=== PATIENT | female | born 2000 | race Two or more races ===

== ENCOUNTER 2023-01-18 08:36 | Emergency (ER) | payer SELFPAY ==
[~2023-01-18] VITALS: Ht 160 cm; Wt 68.2 kg
[2023-01-18 08:44] VITALS: BP 123/90; PULSE 94; RESP 18; TEMP 98.2
== END 2023-01-18 10:15 | disposition left against medical advice (07) ==
LOC: EMS 08:37
DX: N93.9 Abnormal uterine and vaginal bleeding, unspecified (principal); Z53.21 Procedure and treatment not carried out due to patient leaving prior to being seen by health care provider
CPT/HCPCS: 99281; Z7502

== ENCOUNTER 2023-01-22 19:52 | Emergency (ER) | payer MEDICAID ==
[~2023-01-22] VITALS: Ht 160 cm; Wt 68.2 kg
[2023-01-22 20:00] VITALS: TEMP 97.9
[2023-01-22] MEDS ORDERED: ACETAMINOPHEN 500 MG TABLET PO ONE (20:15)
[2023-01-22] MEDS ORDERED: PYRIDOXINE HCL 50 MG TABLET PO ONE (20:15)
[2023-01-22] MEDS ORDERED: DOXYLAMINE SUCCINATE 25 MG TABLET PO ONE (20:15)
[2023-01-22 20:25] LABS: APPEARANCE,URINE CLEAR (CLEAR); BILIRUBIN,URINE NEGATIVE (NEGATIVE); COLOR,URINE LIGHT YELLOW (YELLOW); GLUCOSE, URINE (UA) NEGATIVE (NEGATIVE); KETONES,URINE 40-60 mg/dL (NEGATIVE); LEUKOCYTE ESTERASE ,URINE SMALL (NEGATIVE); NITRATE,URINE NEGATIVE (NEGATIVE); OCCULT BLOOD,URINE TRACE (NEGATIVE); PH,URINE 5.5 (5.0-8.0); PROTEIN,URINE NEGATIVE (NEGATIVE); SPECIFIC GRAVITIY, URINE 1.011 (1.003-1.030); UROBILINOGEN,URINE <=1.0 mg/dL (<=1.0)
[2023-01-22] MEDS ORDERED: SODIUM CHLORIDE 0.9% 1,000 ML IV ONE (20:30)
[2023-01-22 20:52] LABS: RBC,URINE None Seen /HPF (0-2)
[2023-01-22 20:53] LABS: BACTERIA,URINE Few /HPF (None Seen)
[2023-01-22 21:06] LABS: COVID AG,FIA SOURCE NASAL SWAB
[2023-01-22] MEDS ORDERED: CEPHALEXIN MONOHYDRATE 500 MG CAPSULE PO ONE (21:15)
[2023-01-22 21:24] LABS: SARS-COV2 (COVID) ANTIGEN,FIA Negative (Negative)
[2023-01-22 21:49] LABS: BASOPHILS % (AUTO) 0.3 % (0.0-2.0); EOSINOPHILS % (AUTO) 0.4 % (1.0-6.0); HEMATOCRIT 30.9 % (36-46); HEMOGLOBIN 10.3 g/dL (12.0-16.0); LYMPHOCYTES % (AUTO) 10.2 % (22.0-44.0); MEAN CORPUSCULAR HEMOGLOBIN 26.8 pg (26.0-34.0); MEAN CORPUSCULAR HGB CONC 33.4 G/dL (31.0-37.0); MEAN CORPUSCULAR VOLUME 80 fL (80-100); MONOCYTES # (AUTO) 0.5 K/uL (0.1-1.0); MONOCYTES % (AUTO) 4.8 % (2.0-9.0); NEUTROPHILS # (AUTO) 8.3 K/uL (1.8-7.7); NEUTROPHILS % (AUTO) 84.3 % (40.0-70.0); PLATELET COUNT (AUTO) 238 K/uL (150-450); RED BLOOD CELL COUNT(AUTO) 3.85 MIL/uL (4.00-5.20); RED CELL DISTRIBUTION WIDTH 14.6 % (11.5-14.5); WHITE BLOOD COUNT (AUTO) 9.8 K/uL (4.5-11.0)
[2023-01-22 21:52] LABS: ANION GAP 8 mmol/L (8-16); CALCIUM, TOTAL 8.5 mg/dL (8.8-10.5); CARBON DIOXIDE 25 mmol/L (22-29); CHLORIDE 103 mmol/L (98-107); CREATININE 0.69 mg/dL (0.60-1.30); GLOMERULAR FILTR. RATE CALC > 60 mL/min (>60); GLUCOSE,RANDOM 90 mg/dL (70-110); INR 1.1 (0.9-1.1); POTASSIUM 3.6 mmol/L (3.5-5.1); PROTHROMBIN TIME 11.6 SEC (9.4-11.6); SODIUM SERUM 136 mmol/L (136-145); UREA NITROGEN, BLOOD 6 mg/dL (7-18)
[2023-01-22 21:56] LABS: ALANINE AMINOTRANSFERASE 14 U/L (12-78); ALBUMIN 3.9 g/dL (3.4-5.0); ALKALINE PHOSPHATASE 65 U/L (46-116); ASPARTATE AMINOTRANSFERASE 17 U/L (15-37); BILIRUBIN,TOTAL 0.4 mg/dL (0.1-1.0); TOTAL PROTEIN, SERUM 7.6 g/dL (6.4-8.2)
[2023-01-22 23:00] VITALS: BP 105/74; PULSE 63; RESP 19
[2023-01-22 23:00] LABS: HEMATOCRIT 27.6 % (36-46); HEMOGLOBIN 9.2 g/dL (12.0-16.0)
== END 2023-01-22 23:29 | disposition short-term general hospital (02) ==
LOC: EMS 19:54
DX: O00.90 Unspecified ectopic pregnancy without intrauterine pregnancy (principal); F12.90 Cannabis use, unspecified, uncomplicated; Z3A.01 Less than 8 weeks gestation of pregnancy; Z20.822 Contact with and (suspected) exposure to COVID-19
CPT/HCPCS: 99291; 96360; 76705; 76801; 87426; 80053; 81001; 84702; 85014; 85018; 85025; 85610; 85730; 86850; 86900; 86901; 87086; 87186; 36415; J7030

== ENCOUNTER 2023-08-18 13:33 | Emergency (ER) | payer SELFPAY ==
[~2023-08-18] VITALS: Ht 165.1 cm; Wt 5.9 kg
[2023-08-18 13:48] VITALS: TEMP 98.6
[2023-08-18 14:31] LABS: BASOPHILS % (AUTO) 0.5 % (0.0-2.0); HEMATOCRIT 39.7 % (36-46); HEMOGLOBIN 13.2 g/dL (12.0-16.0); LYMPHOCYTES # (AUTO) 1.1 K/uL (1.0-4.8); LYMPHOCYTES % (AUTO) 16.8 % (22.0-44.0); MEAN CORPUSCULAR HEMOGLOBIN 28.3 pg (26.0-34.0); MEAN CORPUSCULAR HGB CONC 33.3 G/dL (31.0-37.0); MEAN CORPUSCULAR VOLUME 85 fL (80-100); MONOCYTES # (AUTO) 0.4 K/uL (0.1-1.0); MONOCYTES % (AUTO) 5.7 % (2.0-9.0); NEUTROPHILS # (AUTO) 4.9 K/uL (1.8-7.7); PLATELET COUNT (AUTO) 219 K/uL (150-450); RED BLOOD CELL COUNT(AUTO) 4.67 MIL/uL (4.00-5.20); RED CELL DISTRIBUTION WIDTH 13.9 % (11.5-14.5); WHITE BLOOD COUNT (AUTO) 6.5 K/uL (4.5-11.0)
[2023-08-18 14:39] LABS: ANION GAP 5 mmol/L (8-16); CALCIUM, TOTAL 9.6 mg/dL (8.8-10.5); CARBON DIOXIDE 30 mmol/L (22-29); CHLORIDE 102 mmol/L (98-107); CREATININE 0.69 mg/dL (0.60-1.30); GLOMERULAR FILTR. RATE CALC > 60 mL/min (>60); GLUCOSE,RANDOM 87 mg/dL (70-110); POTASSIUM 3.7 mmol/L (3.5-5.1); SODIUM SERUM 137 mmol/L (136-145); UREA NITROGEN, BLOOD 15 mg/dL (7-18)
[2023-08-18] MEDS: ACETAMINOPHEN 325 MG TABLET PO ONE (14:39)
[2023-08-18] MEDS: SODIUM CHLORIDE 0.9% 1,000 ML IV ONE (14:39)
[2023-08-18 14:51] LABS: HCG,QUANTITATIVE < 1 mIU/mL (0-6)
[2023-08-18 15:54] LABS: APPEARANCE,URINE HAZY (CLEAR); BILIRUBIN,URINE NEGATIVE (NEGATIVE); COLOR,URINE LIGHT YELLOW (YELLOW); GLUCOSE, URINE (UA) NEGATIVE (NEGATIVE); KETONES,URINE NEGATIVE (NEGATIVE); LEUKOCYTE ESTERASE ,URINE NEGATIVE (NEGATIVE); NITRATE,URINE NEGATIVE (NEGATIVE); OCCULT BLOOD,URINE NEGATIVE (NEGATIVE); PH,URINE 7.5 (5.0-8.0); PROTEIN,URINE NEGATIVE (NEGATIVE); SPECIFIC GRAVITIY, URINE 1.026 (1.003-1.030); UROBILINOGEN,URINE <=1.0 mg/dL (<=1.0)
[2023-08-18] MEDS ORDERED: IOHEXOL 350 MG/ML 100 ML VIAL ONE (16:05)
[2023-08-18] MEDS ORDERED: SODIUM CHLORIDE 0.9% 100 ML ONE (16:05)
[2023-08-18] MEDS ORDERED: LIDO700A15 TP (17:07)
[2023-08-18] MEDS ORDERED: METR500 PO (17:07)
[2023-08-18] MEDS ORDERED: IBUP-1492 PO (17:07)
[2023-08-18] MEDS ORDERED: DOXY-354 PO (17:07)
[2023-08-18] MEDS ORDERED: ACET-2247 PO (17:07)
[2023-08-18] MEDS: CefTRIAXone SODIUM 500 MG in DEXTROSE 5%-WATER 50 ML IV ONE (17:20)
[2023-08-18] MEDS: KETOROLAC TROMETHAMINE 30 MG/ML VIAL IVP ONE (17:21)
[2023-08-18] MEDS: DOXYCYCLINE HYCLATE 100 MG TABLET PO ONE (17:21)
[2023-08-18] MEDS: MetroNIDAZOLE 250 MG TABLET PO ONE (17:21)
[2023-08-18 17:32] VITALS: BP 104/67; PULSE 86; RESP 18
[2023-08-19 08:07] LABS: HIV 1-2 SCREEN 4TH GEN W/RFLX Non Reactive (Non Reactive)
== END 2023-08-18 18:10 | disposition home or self-care (01) ==
LOC: EMS 13:33
DX: N73.9 Female pelvic inflammatory disease, unspecified (principal); F12.90 Cannabis use, unspecified, uncomplicated
CPT/HCPCS: 99285; 74177; 96365; 76830; 76856; 96361; 96375; 86592; 80048; 81003; 84702; 85025; 87210; 36415; 87491; 87591; 87389; J0696; J1885; Q9967; J7060; J7030; J7050

== ENCOUNTER 2023-08-31 09:46 | Emergency (ER) | payer SELFPAY ==
[~2023-08-31] VITALS: Ht 160 cm; Wt 68.2 kg
[~2023-08-31 09:46] MED LIST: ACET-2247 PO; DOXY-354 PO; IBUP-1492 PO; LIDO700A15 TP; METR500 PO
[2023-08-31 09:53] VITALS: TEMP 97.8
[2023-08-31 10:14] VITALS: BP 107/69; PULSE 94; RESP 20
[2023-08-31 12:54] LABS: INFLUENZA A-RTPCR,COMBO NEGATIVE (NEGATIVE); INFLUENZA B-RTPCR,COMBO NEGATIVE (NEGATIVE); RESPIRATORY SYNCYTIAL VRS-PCR NEGATIVE (NEGATIVE); SARS COVID19 RTPCR, COMBO NEGATIVE (NEGATIVE)
== END 2023-08-31 13:38 | disposition home or self-care (01) ==
LOC: EMS 09:46
DX: J06.9 Acute upper respiratory infection, unspecified (principal); F12.90 Cannabis use, unspecified, uncomplicated; Z20.822 Contact with and (suspected) exposure to COVID-19
CPT/HCPCS: 99283; 0241U; 99284